=== PATIENT | male | born 1975 | race African-American/Black ===

== ENCOUNTER 2019-10-01 11:52 | Emergency (ER) | payer OTHER ==
[~2019-10-01] VITALS: Ht 182.9 cm; Wt 132.0 kg
[2019-10-01] MEDS ORDERED: TRAMADOL 50MG TABLET PO ONE (12:45)
[2019-10-01] MEDS ORDERED: IBUPROFEN 600MG TABLET PO ONE (12:45)
[2019-10-01 16:46] VITALS: BP 125/74
== END 2019-10-01 17:19 | disposition home or self-care (01) ==
LOC: ER 11:52
DX: S76.111A Strain of right quadriceps muscle, fascia and tendon, initial encounter (principal); S83.8X1A Sprain of other specified parts of right knee, initial encounter; S83.8X2A Sprain of other specified parts of left knee, initial encounter; W10.8XXA Fall (on) (from) other stairs and steps, initial encounter; Y93.89 Activity, other specified; Y92.018 Other place in single-family (private) house as the place of occurrence of the external cause
CPT/HCPCS: 73521; 73552; 73562; 73564; 99283; L1830; Z7610